=== PATIENT | female | born 1975 | race Caucasian/White ===

== ENCOUNTER → 2016-12-03 | Outpatient (CLI) | payer OTHER ==
[2016-09-17 20:30] VITALS: BP 138/68
[~2016-12-03] MED LIST: AMIT10TA PO; BUSP5TAB PO; CIPR500T94 PO; ETHI1TAB5 PO; FERR240T2 PO; IOHEXOL 300 MG/ML 100ML VIAL. IV ONE; NAPR250T2 PO; OMEP10CA3 PO; TOPI25TA32 PO
--- NOTE | 2016-12-03 14:15 | KCIC ---
PROCEDURE MRI of the thoracic spine without contrast 12/03/2016 HISTORY Lumbar radiculopathy. The patient is being evaluated for spinal cord stimulator placement. TECHNIQUE Unenhanced T1 weighted, T2 weighted and inversion recovery sagittal and T1 weighted and T2 weighted axial images of the thoracic spine were obtained. T2 weighted sagittal images of the cervical, thoracic and lumbar spine were obtained for localization purposes. FINDINGS Very mild S-shaped curvature of the thoracolumbar spine is seen. Degenerative signal changes are seen involving all of the discs of the mid and lower thoracic spine. Degenerative signal changes are seen within the marrow surrounding these discs. The thoracic spinal cord is normal in morphology, position, and signal characteristics. Mild degenerative changes are seen involving the mid and lower thoracic disc spaces. These consist of minimal to mild generalized disc bulges and mild degenerative changes involving the facet joints. These findings do not result in significant central spinal canal or neural foraminal stenosis at any level. No focal disc herniation is seen. IMPRESSION Mild degenerative changes are seen involving the thoracic disc spaces as outlined above. These findings do not result in significant central spinal canal or neural foraminal stenosis at any level. Electronically signed by: Celestino Huggins MD (Dec 03, 2016 14:14:42)
--- NOTE | 2016-12-03 17:03 | KCIC ---
PROCEDURE CT scan of the abdomen and pelvis with contrast 12/03/2016 HISTORY Lumbar radiculopathy. The patient is being evaluated for spinal cord stimulator placement. TECHNIQUE After the oral and intravenous administration of contrast, contiguous, 5 millimeter axial sections were obtained through the abdomen and pelvis. 100 cc of Omnipaque 300 were administered intravenously during this examination. One or more of the following individualized dose reduction techniques were utilized for this study: 1. Automated exposure control. 2. Adjustment of the mA and/or kV according to patient size. 3. Use of iterative reconstruction technique. FINDINGS Images through the lung bases demonstrate minimal dependent subsegmental atelectasis bilaterally. The liver, spleen, pancreas, adrenal glands and kidneys are within normal limits. The abdominal aorta tapers normally. Surgical clips are seen within the gallbladder fossa consistent with a cholecystectomy. No free fluid or free air is seen within the abdomen. There is no evidence of bowel obstruction. Air and stool is seen throughout the colon. THe patient is status post appendectomy. Images through the pelvis demonstrate the urinary bladder to be contracted. A 3.2 centimeter oval-shaped low attenuation structure is seen in the right adnexa. This likely represents a right ovarian cyst. Calcification is seen within the pelvis consistent with a phlebolith. No free fluid is seen. Minimal S-shaped curvature of the thoracolumbar spine is noted. IMPRESSION 3.2 centimeter probable right ovarian cyst. Electronically signed by: Celestino Huggins MD (Dec 03, 2016 17:01:16)
== END | disposition home or self-care (01) ==
LOC: KCIC CT 08:23
PROVIDERS: ATTEND Neurological Surgery
DX: M54.12 Radiculopathy, cervical region (principal)
CPT/HCPCS: 72146; 74177; Q9967

== ENCOUNTER → 2017-02-10 | Outpatient (CLI) | payer OTHER ==
[2016-09-17 20:30] VITALS: BP 138/68
[~2017-02-10] MED LIST changes: -IOHEXOL 300 MG/ML 100ML VIAL. IV ONE
--- NOTE | 2017-02-10 11:56 | KCIC ---
PROCEDURE Thoracic spine radiographs. HISTORY Postop spinal cord stimulator COMPARISON MRI thoracic spine December 03, 2016 FINDINGS Two views of the thoracic spine are submitted. There is quadruple lead thoracic spinal cord stimulator, tips of leads terminating at the T6-7 level. Leads enter into the posterior aspect of the spinal canal at the T10-11 level. Visualized thoracic vertebral body stature and AP alignment are preserved. There is multilevel mild thoracic spondylosis. IMPRESSION 1. Quadruple lead thoracic spinal cord stimulator tips terminate at the T6-T7 level. Electronically signed by: James Joseph MD (Feb 10, 2017 11:55:16)
== END | disposition home or self-care (01) ==
LOC: KCIC 10:25
PROVIDERS: ATTEND Neurological Surgery
DX: M47.894 Other spondylosis, thoracic region (principal)
CPT/HCPCS: 72072